=== PATIENT | male | born 1985 | race African-American/Black ===

== ENCOUNTER 2018-11-26 03:00 | Emergency (ER) | payer MEDICAID ==
[~2018-11-26] VITALS: Ht 188 cm; Wt 99.8 kg
[2018-11-26] MEDS ORDERED: IV NORMAL SALINE 1000 ML BAG IV ONE (03:30)
--- NOTE | 2018-11-26 03:30 | NUR ---
PATIENT WALKED INTO ER C/O DEHYDRATION DUE TO WORKING OUT DOORS X2 DAYS. NO DISTRESS NOTED.
[2018-11-26 03:37] LABS: BASOPHILS # (AUTO) 0.1 K/uL (0.0-8.0); EOSINOPHILS # (AUTO) 0.6 K/uL (0.0-0.7); EOSINOPHILS % (AUTO) 9.6 % (0.0-7.0); HEMATOCRIT 45.3 % (36.7-47.1); HEMOGLOBIN 15.2 g/dL (12.5-16.3); LYMPHOCYTES # (AUTO) 2.2 K/uL (20.0-40.0); LYMPHOCYTES % (AUTO) 37.8 % (20.5-51.5); MEAN CORPUSCULAR HEMOGLOBIN 28.5 uug (23.8-33.4); MEAN CORPUSCULAR HGB CONC 34 g/dL (32.5-36.3); MEAN CORPUSCULAR VOLUME 85.1 fL (73.0-96.2); MONOCYTES # (AUTO) 0.5 K/uL (2.0-10.0); MONOCYTES % (AUTO) 8.1 % (0.0-11.0); NEUTROPHILS # (AUTO) 2.5 K/uL (1.8-8.9); NEUTROPHILS % (AUTO) 43.5 % (38.5-71.5); PLATELET COUNT (AUTO) 259 K/uL (152-348); RED BLOOD CELL COUNT(AUTO) 5.32 MIL/uL (4.06-5.63); WHITE BLOOD COUNT (AUTO) 5.8 K/uL (3.6-10.2)
[2018-11-26 03:44] LABS: CREATININE 1.2 mg/dL (0.6-1.3); POTASSIUM 3.6 mmol/L (3.5-5.1)
[2018-11-26 03:49] LABS: BILIRUBIN,DIRECT 0.2 mg/dL (0.0-0.2); BILIRUBIN,TOTAL 0.7 mg/dL (0.2-1.0); TOTAL PROTEIN, SERUM 7.6 g/dL (6.4-8.2)
--- NOTE | 2018-11-26 03:50 | NUR ---
PATIENT TOLERATED MEAL AND PO FLUID WITH NO N/V
--- NOTE | 2018-11-26 04:30 | NUR ---
PATIENT SLEEPING WITH NO DISTRESS NOTED
--- NOTE | 2018-11-26 05:00 | NUR ---
PATIENT REQUESTING TO STAY UNTIL URINE IS RESULTED. WAITING FOR SAMPLE
[2018-11-26 06:06] LABS: *CLARITY,URINE CLEAR (CLEAR); *COLOR,URINE YELLOW (YELLOW)
[2018-11-26 06:08] LABS: *BILIRUBIN,URIN NEGATIVE (NEGATIVE); *BLOOD, URINE NEGATIVE (NEGATIVE); UGLUCOSE NEGATIVE (NEGATIVE)
[2018-11-26 06:09] LABS: *KETONES,URINE NEGATIVE (NEGATIVE); *UROBILINOGEN,URINE 0.2 E.U./dl (NORMAL); LEUKOCYTE ESTERASE ,URINE NEGATIVE (NEGATIVE); NITRITE, URINE NEGATIVE (NEGATIVE)
--- NOTE | 2018-11-26 06:25 | NUR ---
IV removed. Catheter intact and site benign. Pressure and 4x4 gauze applied to site. No bleeding noted.
--- NOTE | 2018-11-26 06:35 | NUR ---
Patient discharged to home in stable conditon. Written and verbal after care instructions given. Patient verbalizes understanding of instructions. WALKED OUT OF ER WITH NO DISTRESS NOTED
[2018-11-26 06:37] VITALS: BP 118/60
== END 2018-11-26 06:39 | disposition home or self-care (01) ==
LOC: ER 03:08
DX: T67.8XXA Other effects of heat and light, initial encounter (principal); E86.0 Dehydration; X58.XXXA Exposure to other specified factors, initial encounter; Y93.89 Activity, other specified; Y92.89 Other specified places as the place of occurrence of the external cause; Y99.8 Other external cause status
CPT/HCPCS: 36415; 85025; A4663; J7030